=== PATIENT | male | born 1945 | race Two or more races ===

== ENCOUNTER 2019-05-11 05:15 | Emergency (ER) | payer MEDICARE ==
[~2019-05-11] VITALS: Ht 157.5 cm; Wt 72.3 kg
--- NOTE | 2019-05-11 05:50 | NUR ---
Patient ambulated steadily into room with spouse from triage. Primary RN to bedside, patient agreeable to change into hospital gown. Patient attached to blood pressure cuff and pulsatile oxygen sensor. Vitals within normal limits. Midlevel provider to bedside, patient answering questions clearly and concisely. Orders placed, awaiting for chest xray and phlebotomy to draw laboratory samples.
[2019-05-11 06:11] LABS: BASOPHILS # (AUTO) 0.01 x10^3/uL (0-0.1); BASOPHILS % (AUTO) 0 % (0-1); EOSINOPHILS # (AUTO) 0.06 x10^3/uL (0-0.4); EOSINOPHILS % (AUTO) 1 % (1-7); LYMPHOCYTES # (AUTO) 0.56 x10^3/uL (1-3.4); LYMPHOCYTES % (AUTO) 7 % (22-44); MD NO; MEAN CORPUSCULAR HEMOGLOBIN 33.1 pg (27.5-34.5); MEAN CORPUSCULAR VOLUME 97.4 fL (81-97); MEAN PLATELET VOLUME 6.3 fL (7.4-10.4); MONOCYTES # (AUTO) 0.92 x10^3/uL (0.2-0.8); MONOCYTES % (AUTO) 11 % (2-9); NEUTROPHILS # (AUTO) 6.54 x10^3/uL (1.8-6.8); NEUTROPHILS % (AUTO) 81 % (42-75); PLATELET COUNT 198 x10^3/uL (130-400); RED BLOOD COUNT 3.88 x10^6/uL (4.38-5.82); RED CELL DISTRIBUTION WIDTH 12.5 % (9.4-14.8)
[2019-05-11 06:23] LABS: ANION GAP 6 mmol/L (5-15); CALCIUM 8.4 mg/dL (8.5-10.1); CHLORIDE 103 mmol/L (98-107); CREATININE 0.94 mg/dL (0.7-1.3)
[2019-05-11 06:24] LABS: ALBUMIN 3.2 g/dL (3.4-5.0)
[2019-05-11 06:26] LABS: RAPID INFLUENZA A Negative (Negative); RAPID INFLUENZA B Negative (Negative)
[2019-05-11 06:54] VITALS: BP 141/83
--- NOTE | 2019-05-11 06:58 | NUR ---
REPORT RECIEVED FROM JORGE RN. ASSUMED CARE OF PT. PT CURRENTLY RESTING ON [facility] AT THIS TIME, TOREY. NAD NOTED
== END 2019-05-11 07:56 | disposition home or self-care (01) ==
LOC: ED 07:50
DX: J06.9 Acute upper respiratory infection, unspecified (principal); J43.9 Emphysema, unspecified; Z87.891 Personal history of nicotine dependence
CPT/HCPCS: 36415; 71046; 80048; 82040; 85025; 87400; 99284